=== PATIENT | male | born 1980 | race Caucasian/White ===

== ENCOUNTER → 2016-09-20 | Day surgery (SDC) | payer BC ==
[2016-09-04 13:52] VITALS: Ht 177.8 cm; Wt 79.1 kg
[~2016-09-20] VITALS: Ht 177.8 cm; Wt 79.1 kg
[~2016-09-20] MED LIST: IOPAMIDOL INJ 61% 15 ML VIAL ONE; LIDOCAINE HCL 1% MPF 5 ML VIAL ONE; PSEU60TA80 PO; SODIUM CHLORIDE 0.9% INJ 10 ML VIAL ONE
--- NOTE | 2016-09-20 13:31 | History & Physical Bridge - [place] ---
H&P Re-Evaluation Bridge Note: I have examined the patient, reviewed the History & Physical and in the interval since the performance of the History & Physical I have noted the following changes of clinical significance: No changes noted
[2016-09-20 13:54] VITALS: TEMP 37.5
--- NOTE | 2016-09-20 13:57 | Discharge Instructions ---
Discharge Instructions Visit Reason for Visit: Intervertebral Disc Displacement, Lumbar Region Discharge Discharge Diagnosis / Problem: disc herniation with leg Discharge Goals Goal(s): Decrease discomfort, Improve function Activity Recommendations Activity Limitations: resume your previous activity Anesthesia . Post Anesthesia Instructions: If you have had General Anesthesia or IV Sedation: * Do not drive today. * Resume driving when surgeon permits. * Do not make important decisions or sign legal documents today. * Call surgeon for: 1. Temperature elevations greater than 101 degrees F. 2. Uncontrollable pain. 3. Excessive bleeding. 4. Persistent nausea and vomiting. 5. Medication intolerance (nausea, vomiting or rash). * For nausea and vomiting use only clear liquids such as: tea, soda, bouillon until nausea subsides, then gradually increase diet as tolerated. * If you have any concerns or questions, call your surgeon's office. If physician is unavailable and it is an emergency, call 911 or go to the nearest emergency room. . Diet Recommendations Recommended Home Diet: resume previous diet Procedures Procedures Performed: LUMBAR EPIDURAL STEROID INJECTION. Pending Studies Studies pending at discharge: no Medical Emergencies . Who to Call and When: Medical Emergencies: If at any time you feel your situation is an emergency, please call 911 immediately. . Non-Emergent Contact Non-Emergency issues call your: Specialist . . "Provider Documentation" section prepared by Philip Lee.
[2016-09-20 14:03] VITALS: BP 135/90; PULSE 54; O2SAT 97
--- NOTE | 2016-09-20 14:20 | OPERATIVE REPORT ---
DATE OF OPERATION: 09/20/2016 PREOPERATIVE DIAGNOSIS: L5-S1 herniated nucleus pulposus with bilateral lower extremity radiculopathies. POSTOPERATIVE DIAGNOSES: Same. PROCEDURE: Right paramedian L5-S1 intralaminar epidural steroid injection under fluoroscopic guidance. SURGEON: Dr. Philip Lee. INDICATIONS: The patient is a 35-year-old white male who presents today for an epidural steroid injection. He had persistent pain despite an SI joint injection that had been very favorable to him in the past. Additional workup including imaging revealed a large disc herniation at L5-S1 with central protrusion. He presents today for an epidural injection to provide him with relief. PHYSICAL EXAMINATION: GENERAL: Pleasant male seated comfortably in no apparent distress. MUSCULOSKELETAL EXAMINATION: Lumbar paraspinal muscles were palpated and noted to be nontender. He had some mild reproduction of pain with forward flexion. No problems with extension. Motor and sensory exam of the lower extremities were intact. CONSENT: Verbal and written consent was obtained from the patient. Risks and benefits were reviewed. Risks include but are not limited to epidural abscess, epidural hematoma, allergic reaction, dural puncture. The patient wishes to proceed. PROCEDURE: The patient was taken back to the special procedures room of the [facility] where he was maintained in a prone position. Backside was cleansed with Betadine x3 and a dry sterile dressing was applied. Fluoroscope was used to identify the L5-S1 intralaminar space and overlying skin was anesthetized on the right with 4 mL of lidocaine 1% with a 25 gauge 1.5-inch needle. A 22 gauge 3-1/4 inch Tuohy needle was then directed down towards the intralaminar space. It was advanced under lateral fluoroscopic guidance and a loss of resistance was noted at a depth of 5 cm. Isovue-300 contrast 1 mL was injected in which demonstrated epidural uptake pattern which was confirmed with both AP and lateral views. He then underwent injection after negative aspiration of 40 mg of Depo-Medrol and 4 mL of preservative free sodium chloride. Injection was well tolerated and reproduced a familiar transient radicular sensation down the right leg. DISPOSITION: 1. The patient is taken out into the discharge recovery area where he will be discharged home once discharge criteria have been met. 2. Follow up in the [facility] office in 2-4 weeks. I attest to the content of the Intraoperative Record and any orders documented therein. Any exceptio ns are noted below.
== END | disposition home or self-care (01) ==
LOC: X.SURG 12:40
PROVIDERS: ATTEND Physical Medicine & Rehabilitation
DX: M51.26 Other intervertebral disc displacement, lumbar region (principal); M54.16 Radiculopathy, lumbar region